=== PATIENT | male | born 1950 | race Caucasian/White ===

== ENCOUNTER → 2021-08-26 | Day surgery (SDC) | payer BC, MEDICARE ==
[~2021-08-26] MED LIST: Lactated Ringers 1,000 ML IV SCH; Lidocaine 1% with EPINEPHrine 1:100,000 20 ML MDV INJECT ONE; Lidocaine 1% with EPINEPHrine 1:100,000 20 ML MDV ONE; Midazolam 1 MG/ML 2 ML SDV ONE; Propofol 200 MG/20 ML SDV ONE; fentaNYL 100 MCG/2 ML SDV ONE
[2021-08-26 10:43] VITALS: BP 132/67; PULSE 72
--- NOTE | 2021-08-26 15:34 | OR ---
DATE OF OPERATION: 08/26/2021 PREOPERATIVE DIAGNOSIS: INFECTED SEBACEOUS CYST, MID BACK. POSTOPERATIVE DIAGNOSIS: INFECTED SEBACEOUS CYST, MID BACK. SURGEON: Hermann Stapleton MD PROCEDURE: EXCISION OF INFECTED SEBACEOUS CYST AND SAC. ANESTHESIA: Local plus MAC. SPECIMEN: Sebaceous cyst wall. INDICATION FOR PROCEDURE: This 70-year-old male presents with a large 5 cm in diameter abscess in the midback. DESCRIPTION OF PROCEDURE: After 1% xylocaine with epinephrine was used to infiltrate an area over this 5 cm mass, a full-thickness incision was made and carried down to the abscess cavity. Approximately 10 mL of pus was extruded from the abscess cavity and by extending the incision to approximately 3 inches, I was able to find the sac and excised the sac in total. This then cleared out the entire wound which was then irrigated with saline. There was no bleeding. The wound was packed with a 4 x 4 gauze pad, which will be taken out in a few days. Specimen was sent for culture and a permanent section of the abscess wall. [id number] /[id number]
== END ==
LOC: CC.SDS 08:28
PROVIDERS: ATTEND Surgery
DX: L72.0 Epidermal cyst (principal); J44.9 Chronic obstructive pulmonary disease, unspecified; E11.9 Type 2 diabetes mellitus without complications; K21.9 Gastro-esophageal reflux disease without esophagitis; E78.5 Hyperlipidemia, unspecified; I10 Essential (primary) hypertension; G47.33 Obstructive sleep apnea (adult) (pediatric); Z01.812 Encounter for preprocedural laboratory examination; Z20.822 Contact with and (suspected) exposure to COVID-19; Z79.899 Other long term (current) drug therapy; Z79.82 Long term (current) use of aspirin; Z79.84 Long term (current) use of oral hypoglycemic drugs; Z98.890 Other specified postprocedural states; Z87.891 Personal history of nicotine dependence
CPT/HCPCS: 00400; 71046; 87070; 87077; 87088; 87186; 88304; J2250; J2704; J3010; J7120; U0002

== ENCOUNTER 2025-01-25 07:34 | Emergency (ER) | payer BC, MEDICARE, OTHER ==
[2025-01-25 08:18] VITALS: BP 150/87; PULSE 73
[2025-01-25] MEDS: Lidocaine 1% 5 ML VIAL INJECT ONE (08:23)
[2025-01-25] MEDS: Bacitracin/Neomycin/Polymyxin B Oint 0.9 GM U/D Packet TOP ONE (08:25)
== END 2025-01-25 09:01 | disposition home or self-care (01) ==
LOC: CC.ED 07:34
DX: S01.91XA Laceration without foreign body of unspecified part of head, initial encounter (principal); I11.0 Hypertensive heart disease with heart failure; I50.9 Heart failure, unspecified; E11.9 Type 2 diabetes mellitus without complications; E66.9 Obesity, unspecified; E78.00 Pure hypercholesterolemia, unspecified; J45.909 Unspecified asthma, uncomplicated; M19.90 Unspecified osteoarthritis, unspecified site; Z79.899 Other long term (current) drug therapy; Z79.82 Long term (current) use of aspirin; Z79.84 Long term (current) use of oral hypoglycemic drugs; Z68.38 Body mass index [BMI] 38.0-38.9, adult; W22.8XXA Striking against or struck by other objects, initial encounter
CPT/HCPCS: 12002; 99283; A9270; J2003